=== PATIENT | male | born 1985 | race Caucasian/White ===

== ENCOUNTER 2021-07-05 21:34 | Emergency (ER) | payer BC ==
[2021-07-05 22:14] LABS: HEMOGLOBIN 17.8 gm/dl (14.0-17.5); RED BLOOD COUNT 5.4 M/UL (4.20-5.50); WHITE BLOOD COUNT 9.2 K/UL (4.5-11.0)
[2021-07-05 22:33] LABS: BUN/CREATININE RATIO 13 (0-10)
[2021-07-05] MEDS ORDERED: INDOCIN 50 MG C50 MG PO (23:50)
[2021-07-05] MEDS ORDERED: FLONASE 0.05% N16 GM (23:50)
[2021-07-05] MEDS ORDERED: PSEUDOEPHEDRINE60 MG PO (23:50)
[2021-07-05] MEDS ORDERED: DOXYCYCLINE HY100 M2 PO (23:50)
== END 2021-07-05 23:56 | disposition home or self-care (01) ==
LOC: ER1 21:34
PROVIDERS: Physician Assistant Medical
DX: J06.9 Acute upper respiratory infection, unspecified (principal); M10.9 Gout, unspecified; Z20.822 Contact with and (suspected) exposure to COVID-19; F17.210 Nicotine dependence, cigarettes, uncomplicated
CPT/HCPCS: 0240U; 80053; 84550; 85025; 99283